=== PATIENT | male | born 1950 | race African-American/Black ===

== ENCOUNTER 2023-03-23 16:39 | Inpatient (IN) | payer OTHER ==
[~2023-03-23] VITALS: Ht 177.8 cm; Wt 68.0 kg
[2023-03-23] MEDS ORDERED: VANCOMYCIN 1G/D5W 200 ML PIGGYBACK IV ONE (18:15)
[2023-03-23] MEDS ORDERED: IV NORMAL SALINE 1000 ML BAG IV ONE (18:15)
[2023-03-23] MEDS ORDERED: MORPHINE SULFATE 4 MG/1 ML DISP.SYRIN IV ONE (18:15)
[2023-03-23] MEDS ORDERED: ONDANSETRON 4 MG/2 ML VIAL IV ONE (18:15)
[2023-03-23] MEDS ORDERED: CEFEPIME HCL 1 G in IV DEXTROSE 5% 50 ML IV ONE (18:15)
[2023-03-23] MEDS ORDERED: CEFEPIME HCL 1 G VIAL ONE (18:30)
[2023-03-23] MEDS ORDERED: MORPHINE SULFATE 4 MG/1 ML DISP.SYRIN ONE (18:30)
[2023-03-23] MEDS ORDERED: ONDANSETRON 4 MG/2 ML VIAL ONE (18:30)
[2023-03-23] MEDS ORDERED: ATOR80TA PO (18:47)
[2023-03-23] MEDS ORDERED: AMIO100T4 PO (18:47)
[2023-03-23] MEDS ORDERED: ONDA4TAB5 PO (18:47)
[2023-03-23] MEDS ORDERED: FAMO10TA41 PO (18:47)
[2023-03-23] MEDS ORDERED: CARV25TA PO (18:47)
[2023-03-23] MEDS ORDERED: CATS CLAW PO (18:47)
[2023-03-23] MEDS ORDERED: INSU3INS6 SQ (18:47)
[2023-03-23] MEDS ORDERED: POTA10TA10 PO (18:47)
[2023-03-23] MEDS ORDERED: ASCO500C18 PO (18:47)
[2023-03-23] MEDS ORDERED: PRED10TA23 PO (18:47)
[2023-03-23] MEDS ORDERED: EMPA10TA PO (18:47)
[2023-03-23] MEDS ORDERED: SULF1TAB48 PO (18:47)
[2023-03-23] MEDS ORDERED: TRAM50TA2 PO (18:47)
[2023-03-23] MEDS ORDERED: BUME2TAB7 PO (18:47)
[2023-03-23] MEDS ORDERED: METO5TAB7 PO (18:47)
[2023-03-23] MEDS ORDERED: UBID100C13 PO (18:47)
[2023-03-23] MEDS ORDERED: APIX5TAB4 PO (18:47)
[2023-03-23] MEDS ORDERED: MULT-213 PO (18:47)
[2023-03-23] MEDS ORDERED: SACU1TAB PO (18:47)
[2023-03-23] MEDS ORDERED: DOCU-141 PO (18:47)
--- NOTE | 2023-03-23 18:50 | NUR ---
[facility] was able to draw blood at this time.
[2023-03-23 18:56] LABS: HEMATOCRIT 41.2 % (36.7-47.1); MEAN CORPUSCULAR HEMOGLOBIN 26.4 uug (23.8-33.4); MEAN CORPUSCULAR VOLUME 82.4 fL (73.0-96.2); PLATELET COUNT (AUTO) 350 K/uL (152-348)
[2023-03-23 19:04] LABS: CARBON DIOXIDE 31 mmol/L (21-32); CHLORIDE 90 mmol/L (98-107); CREATININE 3.1 mg/dL (0.6-1.3); GLUCOSE 160 mg/dL (74-106); POTASSIUM 4.2 mmol/L (3.5-5.1)
[2023-03-23 19:06] LABS: UREA NITROGEN, BLOOD 90 mg/dL (7-18)
[2023-03-23 19:12] LABS: ALANINE AMINOTRANSFERASE 28 U/L (16-63); ALKALINE PHOSPHATASE 87 U/L (50-136); ASPARTATE AMINOTRANSFERASE 23 U/L (15-37); BILIRUBIN,DIRECT 0.3 mg/dL (0.0-0.2); BILIRUBIN,TOTAL 0.6 mg/dL (0.2-1.0); TOTAL PROTEIN, SERUM 7.3 g/dL (6.4-8.2)
--- NOTE | 2023-03-23 19:15 | NUR ---
Received report from Ilene JUNIOR.
[2023-03-23] MEDS ORDERED: VANCOMYCIN IV 200 ML ONE (20:25)
--- NOTE | 2023-03-23 22:28 | NUR ---
Called Dr. Page for general surgery consult. Dr. Davey on phone with Dr. Page.
[2023-03-23] MEDS ORDERED: LORAZEPAM 0.5 MG TABLET ONE (23:40)
[2023-03-23 23:45] LABS: *BILIRUBIN,URIN NEGATIVE (NEGATIVE); *CLARITY,URINE CLEAR (CLEAR); *COLOR,URINE YELLOW (YELLOW); *KETONES,URINE NEGATIVE (NEGATIVE); *UROBILINOGEN,URINE 0.2 E.U./dl (NORMAL); LEUKOCYTE ESTERASE ,URINE NEGATIVE (NEGATIVE); NITRITE, URINE NEGATIVE (NEGATIVE)
[2023-03-23 23:46] LABS: *BLOOD, URINE NEGATIVE (NEGATIVE); UGLUCOSE 2+ (NEGATIVE)
[2023-03-24 00:03] LABS: BACTERIA,URINE NONE SEEN /HPF (NONE SEEN); SQUAMOUS EPITHELIAL CELL,UR NONE SEEN /HPF (NONE SEEN); WBC,URINE 0-3 /HPF (0-3)
[2023-03-24] MEDS ORDERED: MORPHINE SULFATE 4 MG/1 ML DISP.SYRIN IV ONE (02:15)
[2023-03-24] MEDS ORDERED: MORPHINE SULFATE 4 MG/1 ML DISP.SYRIN ONE (02:16)
--- NOTE | 2023-03-24 05:20 | NUR ---
Waiting for insurance authorization approval for patient to stay per dental front office assistant.
--- NOTE | 2023-03-24 06:05 | NUR ---
Called [facility] for panel call. Mando [place] distribution dispatcher.
[2023-03-24] MEDS ORDERED: REMEDY ESSENTIAL ZINC PASTE 113 GM TP PRN (06:45)
[2023-03-24] MEDS ORDERED: MAGNESIUM HYDROXIDE 30 ML LIQUID UDC PO PRN (06:45)
[2023-03-24] MEDS ORDERED: DEXTROSE 50% 50 ML DISP.SYRIN IV PRN (06:45)
[2023-03-24] MEDS ORDERED: DOSING BY PHARMACY-MD TO SPECIFY MED/ROUTE XX PRN (06:45)
[2023-03-24] MEDS: PANTOPRAZOLE SODIUM 40 MG TABLET.DR PO SCH (07:00)
--- NOTE | 2023-03-24 07:08 | NUR ---
Gave report to Josse JUNIOR.
[2023-03-24] MEDS ORDERED: PANTOPRAZOLE SODIUM 40 MG TABLET.DR PO ONE (07:14)
[2023-03-24] MEDS: BLOOD SUGAR DIAGNOSTIC 1 EACH STRIP VI SCH ×4 (07:49→23:00)
--- NOTE | 2023-03-24 07:50 | NUR ---
Received report from [employer]. Pt is A&Ox4 and is cooperative. Safety measures in place. Will continue to monitor.
--- NOTE | 2023-03-24 07:57 | NUR ---
A.M. care done by sarmad Crawford, remains clean dry and intact. Patient repositioned for comfort and updated on plan of care. No s/s of any distress noted, no voiced c/o pain or discomfort. Side rails remain up will continue to monitor.
[2023-03-24] MEDS: IV NS 1000 ML 1,000 ML IV PRN ×2 (08:38→23:11)
--- NOTE | 2023-03-24 09:39 | NUR ---
PATIENT REPOSITIONED FOR COMFORT, IVF INFUSING WELL, REMAINS WITHOUT ANY C/O.
--- NOTE | 2023-03-24 10:58 | NUR ---
Dr. Kamara saw Pt for bedside eval. Safety measures in place. Will continue to monitor.
[2023-03-24] MEDS ORDERED: MORPHINE SULFATE 2 MG/1 ML DISP.SYRIN ONE (11:39)
[2023-03-24] MEDS: MORPHINE SULFATE 2 MG/1 ML DISP.SYRIN IV PRN (11:49)
--- NOTE | 2023-03-24 12:27 | NUR ---
Patient placed into hospital bed, positioned for comfort, family remains at bedside with any c/o at this time.
[2023-03-24] MEDS ORDERED: IV NORMAL SALINE 500 ML BAG IV ONE ×2 (13:15→16:45)
--- NOTE | 2023-03-24 13:15 | NUR ---
Contacted Dr. Kamara about Pt's low BP: 73/45. said to give Pt 500mL NS bolus. Repeat if Pt's BP is still low.
[2023-03-24] MEDS ORDERED: LIDOCAINE 2%-EPI 1:100,000 20 ML VIAL ONE (13:56)
--- NOTE | 2023-03-24 14:38 | NUR ---
Assisted ROBOTICS TECHNICIAN [place] at bedside for I&D and dressing change, IVF complete and patient repositioned for comfort, will continue to monitor. No change noted in primary assessment.
[2023-03-24] MEDS ORDERED: LIDOCAINE 2%-EPI 1:100,000 20 ML VIAL IJ PRN (14:42)
--- NOTE | 2023-03-24 15:45 | NUR ---
Meal tray has been given.
[2023-03-24] MEDS: INSULIN REGULAR, HUMAN 300 UNIT/3 ML VIAL SQ PRN (17:08)
[2023-03-24] MEDS ORDERED: VANCOMYCIN IV 500 MG in IV DEXTROSE 5% 100 ML IV ONE (18:00)
[2023-03-24] MEDS: CEFEPIME HCL 2 G in IV DEXTROSE 5% 100 ML IV SCH (18:08)
[2023-03-24] MEDS ORDERED: ACETAMINOPHEN 325 MG TABLET ONE (18:29)
[2023-03-24] MEDS: ACETAMINOPHEN 325 MG TABLET PO PRN (18:30)
--- NOTE | 2023-03-24 22:18 | NUR ---
Called third floor and gave report to Olga JUNIOR.
--- NOTE | 2023-03-24 23:00 | NUR ---
Transferred patient via gurney upstairs. VERNON Espinoza made aware of patient's arrival.
[2023-03-24 23:30] VITALS: BP 94/80
[2023-03-25] VITALS (7 sets, daily range): BP systolic 80–124; BP diastolic 49–71
[2023-03-25] MEDS: INSULIN REGULAR, HUMAN 300 UNIT/3 ML VIAL SQ PRN ×5 (01:42→21:23)
--- NOTE | 2023-03-25 03:04 | NUR ---
RECEIVED FROM ER PATIENT ALERT AND ORIENTED X4 PATIENT S/P I AND D PT TOLERATED WELL PATIENT DENIES PAIN NO SIGNS OF RESPIRATORY DISTRESS NOTED. PT LT BUTTOCK DRESSING WHICH HAS DRAINAGE DRESSING CHANGED NO SIGNS OF RESPIRATORY DISTRESS NOTED. FALL AND SAFETY PRECAUTION MAINTAINED. PT HS BLOOD SUGAR 273 GIVEN 6 UNITS OF REG INSULIN GIVEN NO SIGNS OF DIABETIC REACTION NOTED. PT IV ACCESS CHANGED TO RAC 20G AND HAS IVF OF NS INFUSING AT 75ML AND HOUR TOLERATING WELL NO SIGNS OF INFILTRATION NOTED WILL ENDORSE TO AM NURSE.
[2023-03-25] MEDS: PANTOPRAZOLE SODIUM 40 MG TABLET.DR PO SCH (06:29)
[2023-03-25] MEDS: BLOOD SUGAR DIAGNOSTIC 1 EACH STRIP VI SCH ×4 (06:29→21:23)
--- NOTE | 2023-03-25 08:00 | NUR ---
AWAKE ALERT WITH PERIODS OF FORGETFULNESS, NO SS OF DISTRESS OR C/O OF ACUTE PAIN, CONTINUE TELE MONITORING SR ON MONITOR
[2023-03-25] MEDS: SODIUM HYPOCHLORITE 0.125% (QUARTER STRENGTH) 473 ML BOTTLE TP SCH ×2 (08:26→20:29)
--- NOTE | 2023-03-25 10:00 | NUR ---
DRESSING CHANGED ON LEFT BUTTOCKS INCISION NOTED MODERATE AMOUNT OF PUS
[2023-03-25 10:15] LABS: HEMATOCRIT 36.3 % (36.7-47.1); MEAN CORPUSCULAR HEMOGLOBIN 25.8 uug (23.8-33.4); MEAN CORPUSCULAR VOLUME 80.8 fL (73.0-96.2); PLATELET COUNT (AUTO) 279 K/uL (152-348)
[2023-03-25 11:09] LABS: CREATININE 2.3 mg/dL (0.6-1.3); MAGNESIUM 2.2 mg/dL (1.8-2.4); PHOSPHOROUS 3.1 mg/dL (2.5-4.9); POTASSIUM 3.7 mmol/L (3.5-5.1)
[2023-03-25] MEDS: ACETAMINOPHEN 325 MG TABLET PO PRN (11:41)
--- NOTE | 2023-03-25 11:45 | NUR ---
PATIENT BP 80/50 LYING IN BED, C/O PAIN WOUND AREA. TYLENOL 650 MG GIVEN PO, DR KHAN NOTIFIED WITH ORDER TO GIVE NS BOLUS 500 X1
[2023-03-25] MEDS: IV NS 1000 ML 1,000 ML IV PRN (12:57)
[2023-03-25] MEDS ORDERED: IV NORMAL SALINE 500 ML IV ONE (13:00)
[2023-03-25] MEDS ORDERED: VANCOMYCIN IV 750 MG in IV DEXTROSE 5% 250 ML IV ONE (13:00)
--- NOTE | 2023-03-25 13:00 | NUR ---
NO ACUTE CHANGE FROM MORNING ASSESSMENT CONTINUE IVF AND IV ANTIBIOTIC
--- NOTE | 2023-03-25 16:15 | NUR ---
PER DAUGHTER SHE HEARD A THUMB IN THE BATHROOM, DAUGHTER WENT TO CHECK DAD WHO WAS IN THE BATHROOM AND FOUND HIM SITTING IN THE TOILET. PER DAUGHTER " I DID NOT SEE HIM FALL" PER PATIENT STATEMENT HE SAID HE FELL AND HURT HIS FOREHEAD. ASSESSMENT DONE IN BED AND NO BUMP OR INJURY OR BRUISING NOTED. DENIES BEST, DIZZINESS, N/V. BP 104/81, HR 76 RR 18, TEMP. 98, O2 SAT 98% RA. DR KHAN NOTIFIED WITH ORDER FOR CT HEAD WITHOUT CONTRAST
[2023-03-25] MEDS: CEFEPIME HCL 2 G in IV DEXTROSE 5% 100 ML IV SCH (17:14)
--- NOTE | 2023-03-25 18:57 | NUR ---
TO CT SCAN VIA BED . REPORT GIVEN TO DRY WALL APPLICATOR
--- NOTE | 2023-03-25 20:15 | NUR ---
wound care to incised wound in the buttocks, packed with Dakin's soaked strips; CT scan Head result came negative.
[2023-03-25] MEDS ORDERED: HOME MED MISCELLANEOUS XX SCH ×4 (21:15)
[2023-03-26] VITALS: BP 120/60
[2023-03-26 04:00] VITALS: BP 117/58
[2023-03-26] MEDS: PANTOPRAZOLE SODIUM 40 MG TABLET.DR PO SCH (06:20)
[2023-03-26] MEDS: BLOOD SUGAR DIAGNOSTIC 1 EACH STRIP VI SCH ×4 (06:28→21:17)
--- NOTE | 2023-03-26 06:49 | NUR ---
pt rested well in between care; no acute distress; incontinence care done; safety maintained; needs attended.
[2023-03-26 06:55] LABS: HEMATOCRIT 37.1 % (36.7-47.1); MEAN CORPUSCULAR HEMOGLOBIN 25.9 uug (23.8-33.4); MEAN CORPUSCULAR VOLUME 80.8 fL (73.0-96.2); PLATELET COUNT (AUTO) 301 K/uL (152-348)
[2023-03-26] MEDS ORDERED: METOLAZONE 2.5 MG TABLET PO SCH (07:00)
[2023-03-26 07:16] LABS: CREATININE 1.8 mg/dL (0.6-1.3); MAGNESIUM 2.1 mg/dL (1.8-2.4)
[2023-03-26 07:29] LABS: POTASSIUM 4.6 mmol/L (3.5-5.1)
[2023-03-26] MEDS: CARVEDILOL 25 MG TABLET PO SCH ×2 (08:00→17:09)
[2023-03-26] MEDS: AMIODARONE HCL 200 MG TABLET PO SCH (09:00)
[2023-03-26] MEDS: BUMETANIDE 1 MG TABLET PO SCH (09:00)
[2023-03-26] MEDS: CEFEPIME HCL 2 G in IV DEXTROSE 5% 100 ML IV SCH ×2 (09:00→21:04)
[2023-03-26] MEDS: MULTIVIT, IRON, MIN NO. 8, FA TABLET PO SCH (09:01)
[2023-03-26] MEDS: POTASSIUM CHLORIDE 20 MEQ TAB.PRT.SR PO SCH (09:02)
[2023-03-26] MEDS: DOCUSATE SODIUM 100 MG CAPSULE PO SCH (09:02)
[2023-03-26] MEDS: APIXABAN 5 MG TABLET PO SCH ×2 (09:03→21:03)
[2023-03-26] MEDS: ASCORBIC ACID 500 MG TABLET PO SCH (09:03)
[2023-03-26] MEDS: SODIUM HYPOCHLORITE 0.125% (QUARTER STRENGTH) 473 ML BOTTLE TP SCH (09:07)
[2023-03-26] MEDS ORDERED: VANCOMYCIN IV 750 MG in IV DEXTROSE 5% 250 ML IV ONE (10:00)
[2023-03-26] MEDS: MORPHINE SULFATE 2 MG/1 ML DISP.SYRIN IV PRN (10:53)
[2023-03-26 12:00] VITALS: BP 113/65
[2023-03-26] MEDS: SACUBITRIL/VALSARTAN 24 MG-26 TABLET PO SCH ×2 (12:22→17:18)
[2023-03-26] MEDS: DAPAGLIFLOZIN PROPANEDIOL 5 MG TABLET PO SCH (12:22)
[2023-03-26] MEDS: INSULIN REGULAR, HUMAN 300 UNIT/3 ML VIAL SQ PRN ×2 (12:44→17:20)
[2023-03-26 16:00] VITALS: BP_SYST 115; BP_SYST 126; BP_DIAS 67
--- NOTE | 2023-03-26 16:24 | NUR ---
by the bedside. Patient Left arm rotating outward since beginning of my shift. Patient able to verbalize his needs. When asked when did his arm rotated outward, patient replied "long time ago". by the bedside and upset patient's arm looks more confused than yesterday. Called primary doctor and pending call back.
--- NOTE | 2023-03-26 17:43 | NUR ---
While taking the Patient down to CT for Head w/o. Patient expressed, "I cant go" I responded "Pee?" He said "yes." He had expressed that he had not went to the bathroom for a while. BUN and CREAT levels elevated 57 BUN and 1.8 CREAT. Notified RN about all what was talked about during CT procedure.
[2023-03-26] MEDS: INSULIN GLARGINE,HUM 300 UNITS/3 ML CARTRIDGE SQ SCH (21:02)
[2023-03-26] MEDS: ATORVASTATIN 40 MG TABLET PO SCH (21:03)
[2023-03-26] MEDS: IV NS 1000 ML 1,000 ML IV PRN (21:27)
[2023-03-26 21:44] VITALS: BP 106/62
--- NOTE | 2023-03-26 22:19 | NUR ---
DR. ORTIZ SPOKE TO , AT
--- NOTE | 2023-03-26 22:30 | NUR ---
DR KHAN TALKING TO PT
[2023-03-26 22:41] LABS: HEMATOCRIT 40.8 % (36.7-47.1); MEAN CORPUSCULAR HEMOGLOBIN 26.3 uug (23.8-33.4); MEAN CORPUSCULAR VOLUME 80.9 fL (73.0-96.2); PLATELET COUNT (AUTO) 346 K/uL (152-348)
[2023-03-26 22:47] LABS: CARBON DIOXIDE 26 mmol/L (21-32); CHLORIDE 102 mmol/L (98-107); CREATININE 1.8 mg/dL (0.6-1.3); GLUCOSE 236 mg/dL (74-106); UREA NITROGEN, BLOOD 51 mg/dL (7-18)
[2023-03-27 00:46] VITALS: BP 106/60
[2023-03-27 04:53] VITALS: BP 103/52
[2023-03-27] MEDS: BLOOD SUGAR DIAGNOSTIC 1 EACH STRIP VI SCH ×4 (06:36→22:00)
[2023-03-27] MEDS: PANTOPRAZOLE SODIUM 40 MG TABLET.DR PO SCH (06:37)
[2023-03-27 07:29] LABS: HEMATOCRIT 38.4 % (36.7-47.1); MEAN CORPUSCULAR VOLUME 80.7 fL (73.0-96.2); PLATELET COUNT (AUTO) 326 K/uL (152-348)
--- NOTE | 2023-03-27 07:30 | NUR ---
REPORT GIVEN TO VERNON PRIEST
[2023-03-27 08:10] LABS: THYROID STIMULATING HORMONE 1.258 mIU/mL (0.358-3.740)
[2023-03-27] MEDS: DOCUSATE SODIUM 100 MG CAPSULE PO SCH (08:43)
[2023-03-27] MEDS: POTASSIUM CHLORIDE 20 MEQ TAB.PRT.SR PO SCH (08:43)
[2023-03-27] MEDS: MULTIVIT, IRON, MIN NO. 8, FA TABLET PO SCH (08:43)
[2023-03-27] MEDS: BUMETANIDE 1 MG TABLET PO SCH (08:43)
[2023-03-27] MEDS: AMIODARONE HCL 200 MG TABLET PO SCH (08:44)
[2023-03-27] MEDS: ASCORBIC ACID 500 MG TABLET PO SCH (08:44)
[2023-03-27] MEDS: CARVEDILOL 25 MG TABLET PO SCH ×2 (08:45→18:00)
[2023-03-27] MEDS: APIXABAN 5 MG TABLET PO SCH ×2 (08:45→22:14)
[2023-03-27] MEDS: DAPAGLIFLOZIN PROPANEDIOL 5 MG TABLET PO SCH (08:46)
[2023-03-27] MEDS: SACUBITRIL/VALSARTAN 24 MG-26 TABLET PO SCH ×2 (08:47→17:38)
[2023-03-27] MEDS: SODIUM HYPOCHLORITE 0.125% (QUARTER STRENGTH) 473 ML BOTTLE TP SCH (08:48)
[2023-03-27] MEDS: CEFEPIME HCL 2 G in IV DEXTROSE 5% 100 ML IV SCH ×2 (08:50→22:15)
[2023-03-27] MEDS: INSULIN REGULAR, HUMAN 300 UNIT/3 ML VIAL SQ PRN ×2 (09:03→12:40)
[2023-03-27 09:37] LABS: CREATININE 1.7 mg/dL (0.6-1.3); MAGNESIUM 2.3 mg/dL (1.8-2.4); PHOSPHOROUS 2.6 mg/dL (2.5-4.9)
[2023-03-27] MEDS ORDERED: VANCOMYCIN IV 750 MG in IV DEXTROSE 5% 250 ML IV ONE (10:00)
[2023-03-27 12:00] VITALS: BP 94/58
[2023-03-27] MEDS: predniSONE 5 MG TABLET PO SCH (12:43)
[2023-03-27 16:00] VITALS: BP 105/60
[2023-03-27] MEDS: GLUCERNA SHAKE 237 ML CAN PO SCH (17:38)
--- NOTE | 2023-03-27 18:35 | NUR ---
Results of ct of abdomen and pelvis called to Dr. Page. texted Dr. Kamara to call urologist to see the patient. Orders received.
[2023-03-27 20:00] VITALS: BP 107/61
[2023-03-27] MEDS ORDERED: CLINDAMYCIN 900MG/D5W 100ML IVPB **ER PYXIS ONLY IJ ONE (21:07)
[2023-03-27] MEDS: MORPHINE SULFATE 2 MG/1 ML DISP.SYRIN IV PRN (21:43)
[2023-03-27] MEDS: ATORVASTATIN 40 MG TABLET PO SCH (22:10)
[2023-03-27] MEDS: INSULIN GLARGINE,HUM 300 UNITS/3 ML CARTRIDGE SQ SCH (22:14)
[2023-03-27] MEDS ORDERED: LORAZEPAM 2 MG/1 ML VIAL IV ONE (23:45)
[2023-03-28] VITALS (11 sets, daily range): BP systolic 81–113; BP diastolic 39–63
[2023-03-28] MEDS ORDERED: CLINDAMYCIN PHOSPHATE IV 900 MG in IV DEXTROSE 5% 100 ML IV SCH (05:00)
[2023-03-28] MEDS: PANTOPRAZOLE SODIUM 40 MG TABLET.DR PO SCH (06:23)
[2023-03-28] MEDS: TRAMADOL HCL 50 MG TABLET PO PRN (06:24)
[2023-03-28] MEDS: BLOOD SUGAR DIAGNOSTIC 1 EACH STRIP VI SCH ×4 (06:24→21:29)
[2023-03-28 07:17] LABS: HEMATOCRIT 32.1 % (36.7-47.1); MEAN CORPUSCULAR HEMOGLOBIN 26.3 uug (23.8-33.4); MEAN CORPUSCULAR VOLUME 80.4 fL (73.0-96.2); PLATELET COUNT (AUTO) 300 K/uL (152-348)
[2023-03-28 07:30] LABS: CREATININE 2.3 mg/dL (0.6-1.3); POTASSIUM 3.5 mmol/L (3.5-5.1)
--- NOTE | 2023-03-28 07:30 | NUR ---
REPORT GIVEN TO VERNON SHEA
[2023-03-28] MEDS ORDERED: CLINDAMYCIN PHOSPHATE IV 900 MG in IV DEXTROSE 5% 44 ML IV SCH (07:58)
[2023-03-28] MEDS ORDERED: MEROPENEM 1 G in IV NORMAL SALINE 100 ML IV SCH (08:00)
[2023-03-28] MEDS: CARVEDILOL 25 MG TABLET PO SCH ×2 (08:00→18:00)
[2023-03-28] MEDS: INSULIN REGULAR, HUMAN 300 UNIT/3 ML VIAL SQ PRN ×3 (08:24→21:31)
[2023-03-28] MEDS: GLUCERNA SHAKE 237 ML CAN PO SCH ×2 (08:25→17:00)
[2023-03-28] MEDS: DAPAGLIFLOZIN PROPANEDIOL 5 MG TABLET PO SCH (09:00)
--- NOTE | 2023-03-28 09:00 | NUR ---
RECEIVED PATIENT IN BED AWAKE ALERT TO SELF SOMEWHAT SLOW BUT ANSWERS QUESTIONS WHEN SPOKEN TO ON ROOM AIR WITH NO SHORTNESS OF BREATH.TURNED AND REPOSITIONED FOR COMFORT NO S/S OF HYPO/HYPERGLYCEMIC REACTIONS AT THIS TIME TREATMENT IN PROGRESS TO LEFT BUTTOCKS AREA ORDERED WITH PURULENT DRAINAGE NOTED.TELE IS SR HE HAS GAIL WRIST RESTRAINTS FOR SAFETY TO PREVENT FROM PULLING OUT TUBES CHECKED FOR ADEQUATE CIRCULATION AND RELEASED MADE COMFORTABLE WILL CONTINUE TO OBSERVE.
[2023-03-28] MEDS: POTASSIUM CHLORIDE 20 MEQ TAB.PRT.SR PO SCH (09:19)
[2023-03-28] MEDS: DOCUSATE SODIUM 100 MG CAPSULE PO SCH (09:21)
[2023-03-28] MEDS: MULTIVIT, IRON, MIN NO. 8, FA TABLET PO SCH (09:21)
[2023-03-28] MEDS: AMIODARONE HCL 200 MG TABLET PO SCH (09:23)
[2023-03-28] MEDS: APIXABAN 5 MG TABLET PO SCH ×2 (09:25→21:00)
[2023-03-28] MEDS: SACUBITRIL/VALSARTAN 24 MG-26 TABLET PO SCH ×2 (09:29→17:00)
[2023-03-28] MEDS: SODIUM HYPOCHLORITE 0.125% (QUARTER STRENGTH) 473 ML BOTTLE TP SCH (09:41)
[2023-03-28] MEDS ORDERED: VANCOMYCIN IV 750 MG in IV DEXTROSE 5% 250 ML IV ONE (10:00)
[2023-03-28] MEDS: ASCORBIC ACID 500 MG TABLET PO SCH (10:16)
[2023-03-28] MEDS: CLINDAMYCIN PHOSPHATE IV 900 MG in IV DEXTROSE 5% 44 ML IV SCH ×2 (10:16→20:33)
[2023-03-28] MEDS: BUMETANIDE 1 MG TABLET PO SCH (10:17)
--- NOTE | 2023-03-28 11:30 | NUR ---
DR MOTLEY HERE SEEN AND EXAMINED PATIENT AT THE BEDSIDE AND STATED THAT PATIENT NEEDS SURGICAL INTERVENTION AND THAT DR CLAY NEEDS TO BE NOTIFIED.
[2023-03-28] MEDS: predniSONE 5 MG TABLET PO SCH (12:00)
--- NOTE | 2023-03-28 12:35 | NUR ---
CALLED DR DANNA GHOSH NOTIFIED HIM THAT DR MOTLEY WAS HERE AND EXAMINED PATIENT AND STATED THAT PATIENT NEEDS FUTHER SURGICAL INTERVENTION AND HE STATED THAT HE IS OUT OF TOWN AND DR REN WAS COVERING STATED WILL NOTIFY DR REN AND WILL THEN NOTIFY ME OF THE PLAN OF CARE.
--- NOTE | 2023-03-28 12:41 | NUR ---
CALL RECEIVED FROM DR DANNA GHOSH STATED THAT DR REN IS AWARE OF THE ABOVE SURGICAL INTERVENTION AND THAT DR REN WILL BE HERE TODAY TO SEE PATIENT.
--- NOTE | 2023-03-28 13:25 | NUR ---
DR REN HERE SEEN PATIENT STATED WILL TAKE PATIENT IN FOR INCISION DEBRIDEMENT AND DRAINAGE OF LEFT BUTTOCKS WOUND PATIENTS GISELA AWARE AND DR REN EXPLAINED EVERYTHING TO HER ON THE PHONE AND SHE GAVE ME A TELEPHONE CONSCENT SO PATIENT IS SCHEDULED FOR SURGERY
--- NOTE | 2023-03-28 15:30 | NUR ---
PATIENT PICKED UP BY BED TO SURGERY ORDERED.
[2023-03-28] MEDS ORDERED: GLYCOPYRROLATE 0.2 MG/ML VIAL ONE (15:31)
[2023-03-28] MEDS ORDERED: ETOMIDATE 20 MG/10 ML VIAL ONE (15:31)
[2023-03-28] MEDS ORDERED: CALCIUM CHLORIDE 1 GM/10 ML DISP.SYRIN IVP ONE ×2 (15:31→15:56)
[2023-03-28] MEDS ORDERED: METOCLOPRAMIDE HCL 10 MG/2 ML VIAL ONE (15:31)
[2023-03-28] MEDS ORDERED: LIDOCAINE-MPF 2% 5 ML VIAL ONE (15:31)
[2023-03-28] MEDS ORDERED: PHENYLEPHRINE 10 MG/1 ML VIAL ONE (15:31)
[2023-03-28] MEDS ORDERED: PROPOFOL 200 MG/20 ML BOTTLE ONE (15:31)
[2023-03-28] MEDS ORDERED: ONDANSETRON 4 MG/2 ML VIAL ONE (15:31)
[2023-03-28] MEDS ORDERED: CLINDAMYCIN 600 MG PIGGYBACK**ER OMNI IV ONE (15:54)
[2023-03-28] MEDS ORDERED: KETAMINE HCL 200 MG/20 ML VIAL ONE (15:55)
[2023-03-28] MEDS ORDERED: INSULIN REGULAR, HUMAN 300 UNIT/3 ML VIAL ONE (15:55)
[2023-03-28] MEDS ORDERED: ALBUMIN HUMAN 5% 500 ML ONE (15:55)
[2023-03-28] MEDS ORDERED: FENTANYL CITRATE 100 MCG/2 ML AMPUL ONE (15:55)
[2023-03-28] MEDS ORDERED: FAMOTIDINE. 20 MG/2 ML VIAL IV ONE (15:56)
[2023-03-28] MEDS ORDERED: IV LACTATED RINGERS SOLUTION 1,000 ML IV PRN (18:30)
--- NOTE | 2023-03-28 20:45 | NUR ---
Pt is noted on the unit from PACU sleepy but responsive as he is S/P Incision Debridement and Drainage to Left Buttocks wound. Sinus Rhythm , Diminished Lungs sound with 02 2Liters Nasal Cannula , skin cool with surgical areas noted and dressing change done as PACU dressing saturated and wet during report at bedside . Pt is noted with Conley Cath as he is care continue with IVF LR at 100ML/HR , While monitor closely for any s/s off distress or change in conditions during the shift.
[2023-03-28] MEDS: INSULIN GLARGINE,HUM 300 UNITS/3 ML CARTRIDGE SQ SCH (21:00)
[2023-03-28] MEDS: ATORVASTATIN 40 MG TABLET PO SCH (21:00)
--- NOTE | 2023-03-28 22:18 | NUR ---
Pt Moe Avendaño was called and updated on conditions. Pt care continue while monitor closely.
[2023-03-28] MEDS ORDERED: MEROPENEM 1 G VIAL IV ONE (23:48)
[2023-03-28] MEDS ORDERED: CLINDAMYCIN 900MG/D5W 100ML IVPB **ER PYXIS ONLY IJ ONE (23:49)
[2023-03-29] VITALS (13 sets, daily range): BP systolic 85–110; BP diastolic 49–63
--- NOTE | 2023-03-29 00:09 | NUR ---
Pt remain full code with Vitals stable , call light in reach and fall precautions in place. Pt care continue as he is been monitor closely with IVF and Antibiotic therapy in progress.
[2023-03-29] MEDS: MORPHINE SULFATE 2 MG/1 ML DISP.SYRIN IV PRN ×3 (03:05→14:58)
--- NOTE | 2023-03-29 03:45 | NUR ---
Morphine IVP noted effective with call light in reach and fall precautions in place as AM and wound care done. Pt care continue.
[2023-03-29 05:34] LABS: HEMATOCRIT 30.3 % (36.7-47.1); MEAN CORPUSCULAR HEMOGLOBIN 26.2 uug (23.8-33.4); MEAN CORPUSCULAR VOLUME 80.2 fL (73.0-96.2); PLATELET COUNT (AUTO) 272 K/uL (152-348)
[2023-03-29 05:46] LABS: CREATININE 1.5 mg/dL (0.6-1.3); MAGNESIUM 1.5 mg/dL (1.8-2.4); PHOSPHOROUS 2.4 mg/dL (2.5-4.9); POTASSIUM 4.1 mmol/L (3.5-5.1)
[2023-03-29] MEDS: PANTOPRAZOLE SODIUM 40 MG TABLET.DR PO SCH (06:50)
[2023-03-29] MEDS: BLOOD SUGAR DIAGNOSTIC 1 EACH STRIP VI SCH ×4 (06:55→21:31)
--- NOTE | 2023-03-29 07:25 | NUR ---
Pt care continue as report given to the AM receiving Nurse.
[2023-03-29] MEDS: CARVEDILOL 25 MG TABLET PO SCH ×2 (08:00→17:25)
[2023-03-29] MEDS: GLUCERNA SHAKE 237 ML CAN PO SCH ×2 (08:00→17:16)
--- NOTE | 2023-03-29 08:00 | NUR ---
Verbal endorsement received from night primary RN. Complete intial assessment rendered . See nursing notes for details. Pt. is medical pt. in ICU . Medical Surgical protocol will be followed. Pt. received lying on right side. Pt. is confused. Pt. is able to describe pain and intensity. c/o pain 10/10. Medicated with PRN as ordered. Monotored for pain, and acute distress.
[2023-03-29] MEDS: MEROPENEM 1 G in IV NORMAL SALINE 100 ML IV SCH ×4 (08:12→21:17)
[2023-03-29] MEDS: CLINDAMYCIN PHOSPHATE IV 900 MG in IV DEXTROSE 5% 44 ML IV SCH ×3 (08:22)
[2023-03-29] MEDS: SACUBITRIL/VALSARTAN 24 MG-26 TABLET PO SCH ×2 (08:24→17:14)
[2023-03-29] MEDS: DAPAGLIFLOZIN PROPANEDIOL 5 MG TABLET PO SCH (08:25)
[2023-03-29] MEDS: POTASSIUM CHLORIDE 20 MEQ TAB.PRT.SR PO SCH (08:27)
[2023-03-29] MEDS: MULTIVIT, IRON, MIN NO. 8, FA TABLET PO SCH (08:27)
[2023-03-29] MEDS: DOCUSATE SODIUM 100 MG CAPSULE PO SCH (08:28)
[2023-03-29] MEDS: AMIODARONE HCL 200 MG TABLET PO SCH (08:28)
[2023-03-29] MEDS ORDERED: MAGNESIUM SULFATE/D5W 100 ML IV SCH (08:45)
[2023-03-29] MEDS ORDERED: NEUTRA PHOS PACKET PO ONE (08:45)
[2023-03-29] MEDS: APIXABAN 5 MG TABLET PO SCH ×2 (08:57→21:18)
[2023-03-29] MEDS ORDERED: VANCOMYCIN IV 750 MG in IV DEXTROSE 5% 250 ML IV ONE (09:00)
[2023-03-29] MEDS: ASCORBIC ACID 500 MG TABLET PO SCH (09:01)
[2023-03-29] MEDS: INSULIN REGULAR, HUMAN 300 UNIT/3 ML VIAL SQ PRN ×3 (11:34→21:29)
--- NOTE | 2023-03-29 13:00 | NUR ---
Dr. Walton in for evaluation. Magnisium replacements ordered. Orders confirmed not to change drsg. only top of drsg. Do not remove packing.
--- NOTE | 2023-03-29 14:06 | NUR ---
A call from Surgeon Dr. Solomon whatley reported as requested orders to give 3grams of magnesium IV and kphos QID.
[2023-03-29] MEDS: MAGNESIUM SULFATE/D5W 100 ML IV SCH ×2 (15:03→15:04)
[2023-03-29] MEDS: ACETAMINOPHEN 325 MG TABLET PO PRN (16:47)
[2023-03-29] MEDS: CLINDAMYCIN PHOSPHATE IV 900 MG in IV DEXTROSE 5% 100 ML IV SCH (17:14)
--- NOTE | 2023-03-29 18:00 | NUR ---
Pt. had small amount of fecal soilage to rectal drsg. Changed and repositioned for comfort. Endorsed to oncoming shift injury free.
--- NOTE | 2023-03-29 19:15 | NUR ---
Pt is noted sleeping but responsive with call light in reach and fall precautions in place as he is forgetful as report is received from the off going nurse that , Pt is OP#1 S/P Incision Debridement and Drainage to Left Buttocks wound. Sinus Rhythm , Diminished Lungs sound , Room Air , skin dry, warml with surgical areas noted and dressing change will be done as ordered . Pt is noted with Conley Cath as he is care continue with IVF LR at 100ML/HR and Antibiotic therapy While monitor closely for any s/s off distress or change in conditions during the shift.
[2023-03-29] MEDS: INSULIN GLARGINE,HUM 300 UNITS/3 ML CARTRIDGE SQ SCH (21:00)
--- NOTE | 2023-03-29 21:00 | NUR ---
Pt son visited with updates given on Pt condition. Pt care continue.
[2023-03-29] MEDS: ATORVASTATIN 40 MG TABLET PO SCH (21:16)
[2023-03-30] VITALS (16 sets, daily range): BP systolic 80–124; BP diastolic 46–113
--- NOTE | 2023-03-30 00:40 | NUR ---
Pt remain full code with IVF and Antibiotic therapy in progress as he is been turn and reposition QHRS for comfort. Pt care continue.
[2023-03-30] MEDS: CLINDAMYCIN PHOSPHATE IV 900 MG in IV DEXTROSE 5% 100 ML IV SCH ×3 (03:48→17:24)
--- NOTE | 2023-03-30 05:02 | NUR ---
Pt is sleeping as AM and wound care done while monitor closely as Conley Cath remain in place. Pt care continue.
--- NOTE | 2023-03-30 05:03 | NUR ---
Pt care continue as he remain full code with call light in reach and fall precautions in place as he is been turn and reposition 2HRS for comfort.
[2023-03-30 05:07] LABS: HEMATOCRIT 31.2 % (36.7-47.1); MEAN CORPUSCULAR HEMOGLOBIN 26.5 uug (23.8-33.4); MEAN CORPUSCULAR VOLUME 80.8 fL (73.0-96.2); PLATELET COUNT (AUTO) 262 K/uL (152-348)
[2023-03-30 05:26] LABS: CREATININE 1.4 mg/dL (0.6-1.3); PHOSPHOROUS 2.4 mg/dL (2.5-4.9); POTASSIUM 4.1 mmol/L (3.5-5.1)
[2023-03-30] MEDS: PANTOPRAZOLE SODIUM 40 MG TABLET.DR PO SCH (06:46)
[2023-03-30] MEDS: BLOOD SUGAR DIAGNOSTIC 1 EACH STRIP VI SCH ×4 (06:51→20:47)
[2023-03-30] MEDS: INSULIN REGULAR, HUMAN 300 UNIT/3 ML VIAL SQ PRN ×3 (07:01→20:55)
--- NOTE | 2023-03-30 07:30 | NUR ---
Pt. verbally endorsed from night primary RN Esthela. mPt. is resting in bed lying on left side. panel monitor intact depicting SR. Pt. has no c/o pain at this time. Complete initial assessment rendered. See nursing notes for detai;s. Surgical buttocks drsg checked for excessive drainage. drsg is CDI at this assessment. Pt. monitored for acute distress.
--- NOTE | 2023-03-30 07:33 | NUR ---
Pt care continue as report is given to the AM receiving nurse.
[2023-03-30] MEDS: CARVEDILOL 25 MG TABLET PO SCH ×2 (08:00→17:26)
[2023-03-30] MEDS: ASCORBIC ACID 500 MG TABLET PO SCH (08:25)
[2023-03-30] MEDS: MULTIVIT, IRON, MIN NO. 8, FA TABLET PO SCH (08:25)
[2023-03-30] MEDS: AMIODARONE HCL 200 MG TABLET PO SCH (08:25)
[2023-03-30] MEDS: DOCUSATE SODIUM 100 MG CAPSULE PO SCH (08:25)
[2023-03-30] MEDS: APIXABAN 5 MG TABLET PO SCH ×2 (08:26→20:27)
[2023-03-30] MEDS: SACUBITRIL/VALSARTAN 24 MG-26 TABLET PO SCH ×2 (08:31→17:24)
[2023-03-30] MEDS: POTASSIUM CHLORIDE 20 MEQ TAB.PRT.SR PO SCH (08:31)
[2023-03-30] MEDS: MEROPENEM 1 G in IV NORMAL SALINE 100 ML IV SCH ×2 (08:32→20:25)
[2023-03-30] MEDS: GLUCERNA SHAKE 237 ML CAN PO SCH ×2 (08:33→17:00)
[2023-03-30] MEDS: DAPAGLIFLOZIN PROPANEDIOL 5 MG TABLET PO SCH (08:35)
[2023-03-30] MEDS ORDERED: VANCOMYCIN IV 750 MG in IV DEXTROSE 5% 250 ML IV ONE (09:00)
--- NOTE | 2023-03-30 10:14 | NUR ---
Dr. Carbajal paged to inquire of wound care. Instructions given to rinse wound with saline and Dakins solution and re pack drsg. Do not remove drsgs past xeroform. Remove only surface soiled drsgs and medicate pt. before drsg change.
[2023-03-30] MEDS ORDERED: SODIUM HYPOCHLORITE 0.25% (HALF STRENGTH) 480 ML BOTTLE TOP PRN (10:30)
[2023-03-30] MEDS: MORPHINE SULFATE 2 MG/1 ML DISP.SYRIN IV PRN (11:23)
--- NOTE | 2023-03-30 13:00 | NUR ---
Pt. cleansed of BM . Drsg changed as per MD orders. All packing removed. Dr. Carbajal in as I started to change drsg. Instructed to remove all packing as it was soiled with feces. Irrigated with Dakins solution and saline with 60cc syringe. Applied xerofoam first and packed into lower portion of wound near scrotum. Then applied damp dakins and saline curlex packing to end of wound as per Dr. Carbajal. 4x4 's then applied to top of packing and this is what should be removed during changes unless soilage extends to xerofoam. 5x9's abdominal drsgs to cover total wound and use paper tape. Pt. tolerated drsg change well. Pre-medicated with Morphine 2mg. IV.
[2023-03-30] MEDS: ACETAMINOPHEN 325 MG TABLET PO PRN (13:18)
[2023-03-30] MEDS: TRAMADOL HCL 50 MG TABLET PO PRN ×2 (14:26→21:26)
[2023-03-30] MEDS ORDERED: NEUTRA PHOS PACKET PO ONE (17:30)
[2023-03-30] MEDS: ATORVASTATIN 40 MG TABLET PO SCH (20:28)
--- NOTE | 2023-03-30 20:40 | NUR ---
Pt care continue as order noted from DR. Kamara for PICC Line insertion.
[2023-03-30] MEDS ORDERED: INSULIN GLARGINE,HUM 300 UNITS/3 ML CARTRIDGE SQ ONE (20:49)
[2023-03-30] MEDS: INSULIN GLARGINE,HUM 300 UNITS/3 ML CARTRIDGE SQ SCH (20:56)
[2023-03-31] VITALS (11 sets, daily range): BP systolic 83–135; BP diastolic 34–77
[2023-03-31] MEDS: CLINDAMYCIN PHOSPHATE IV 900 MG in IV DEXTROSE 5% 100 ML IV SCH ×3 (00:16→16:28)
[2023-03-31] MEDS ORDERED: NOREPINEPHRINE BITARTRATE 8 MG in IV NORMAL SALINE 242 ML IV PRN ×2 (02:30→14:00)
[2023-03-31] MEDS ORDERED: NOREPINEPHRINE BITARTRATE 4 MG/4 ML VIAL IV ONE (03:40)
--- NOTE | 2023-03-31 04:00 | NUR ---
Levophed started on patient, 0.2 mcgs and weaned off at 0600. Pharmacy not available at this so I am charting a noted, dressing changed completed this am. Vital signs stable and the patient will be ready for med-surg
[2023-03-31] MEDS: BLOOD SUGAR DIAGNOSTIC 1 EACH STRIP VI SCH ×4 (05:24→20:24)
[2023-03-31 05:26] LABS: HEMATOCRIT 24.7 % (36.7-47.1); MEAN CORPUSCULAR HEMOGLOBIN 26.6 uug (23.8-33.4); MEAN CORPUSCULAR VOLUME 79.7 fL (73.0-96.2); PLATELET COUNT (AUTO) 262 K/uL (152-348)
[2023-03-31] MEDS: PANTOPRAZOLE SODIUM 40 MG TABLET.DR PO SCH (05:26)
[2023-03-31 05:48] LABS: CREATININE 1.3 mg/dL (0.6-1.3); MAGNESIUM 1.9 mg/dL (1.8-2.4); PHOSPHOROUS 2.9 mg/dL (2.5-4.9); POTASSIUM 4.6 mmol/L (3.5-5.1)
[2023-03-31] MEDS: TRAMADOL HCL 50 MG TABLET PO PRN (06:05)
[2023-03-31] MEDS ORDERED: VANCOMYCIN IV 1,000 MG in IV DEXTROSE 5% 250 ML IV ONE (08:00)
--- NOTE | 2023-03-31 08:00 | NUR ---
Dr Fernch saw the patient and I updated him about the condition of the patient from last night and this morning.
[2023-03-31] MEDS: POTASSIUM CHLORIDE 20 MEQ TAB.PRT.SR PO SCH (08:30)
[2023-03-31] MEDS: AMIODARONE HCL 200 MG TABLET PO SCH (08:31)
[2023-03-31] MEDS: CARVEDILOL 25 MG TABLET PO SCH ×2 (08:31→17:36)
[2023-03-31] MEDS: ASCORBIC ACID 500 MG TABLET PO SCH (08:32)
[2023-03-31] MEDS: DOCUSATE SODIUM 100 MG CAPSULE PO SCH (08:32)
[2023-03-31] MEDS: APIXABAN 5 MG TABLET PO SCH ×2 (08:32→20:24)
[2023-03-31] MEDS: MULTIVIT, IRON, MIN NO. 8, FA TABLET PO SCH (08:32)
[2023-03-31] MEDS: DAPAGLIFLOZIN PROPANEDIOL 5 MG TABLET PO SCH (08:34)
[2023-03-31] MEDS: MEROPENEM 1 G in IV NORMAL SALINE 100 ML IV SCH ×2 (08:35→15:35)
[2023-03-31] MEDS: GLUCERNA SHAKE 237 ML CAN PO SCH ×2 (09:11→16:28)
[2023-03-31] MEDS: SACUBITRIL/VALSARTAN 24 MG-26 TABLET PO SCH ×2 (09:20→16:28)
[2023-03-31] MEDS: INSULIN REGULAR, HUMAN 300 UNIT/3 ML VIAL SQ PRN ×3 (12:03→20:25)
--- NOTE | 2023-03-31 18:40 | NUR ---
RECEIVED PATIENT FROM CCU BY BED 72 YEARS OLD MALE AWAKE ALERT AND ORIENTED ORIENTED TO ROOM TELE IS SR AT BEDSIDE HE HAS O2 AT 2L/M BY NASAL CANULA RIGHT ARM SWOLLEN WITH PICC LINE INTACT HE HAS ON HIS ALVARADO BUNION A PURPLE HARD AREA ENDORSED TO FOLLOW UP WITH THE MEDICAID ANALYST
--- NOTE | 2023-03-31 19:30 | NUR ---
Received patient lying in bed. AAOx4. In no acute distress. No complain of pain or SOB. NSR on tele with Hr of 74/min. PICC line on right upper arm, PIV on right ac and right forearm intact and patent. Dressing on left buttock clean, dry and intact. Conley catheter intact and draining via gravity. Safety measure initiated and call light within reached.
[2023-03-31] MEDS: ATORVASTATIN 40 MG TABLET PO SCH (20:23)
[2023-03-31] MEDS: INSULIN GLARGINE,HUM 300 UNITS/3 ML CARTRIDGE SQ SCH (20:25)
[2023-04-01] MEDS: MEROPENEM 1 G in IV NORMAL SALINE 100 ML IV SCH ×3 (00:06→16:15)
[2023-04-01] MEDS: CLINDAMYCIN PHOSPHATE IV 900 MG in IV DEXTROSE 5% 100 ML IV SCH ×3 (00:07→17:06)
[2023-04-01 00:30] VITALS: BP 104/56
[2023-04-01] MEDS: ACETAMINOPHEN 325 MG TABLET PO PRN ×2 (00:33→16:16)
--- NOTE | 2023-04-01 01:23 | NUR ---
Temp was 100.0 orally. Tylenol 650mg PO given and provided cooling measures. Temp down to 99.6 orally at this time. Continue with cooling measures.
[2023-04-01 05:04] VITALS: BP 101/55
--- NOTE | 2023-04-01 05:40 | NUR ---
Afebrile at this time. No adverse reaction noted from IV antibiotics. NSR on tele with Hr of 72/min. Dressing changed to left buttock surgical site x2. Conley catheter intact and draining via gravity. Needs attended to and met. Safety measure maintained and call light within reached.
[2023-04-01] MEDS: PANTOPRAZOLE SODIUM 40 MG TABLET.DR PO SCH (06:09)
[2023-04-01] MEDS: BLOOD SUGAR DIAGNOSTIC 1 EACH STRIP VI SCH ×4 (06:38→21:03)
[2023-04-01 06:57] LABS: HEMATOCRIT 25.7 % (36.7-47.1); MEAN CORPUSCULAR HEMOGLOBIN 26.6 uug (23.8-33.4); MEAN CORPUSCULAR VOLUME 80.4 fL (73.0-96.2); PLATELET COUNT (AUTO) 305 K/uL (152-348)
[2023-04-01 07:19] LABS: BILIRUBIN,TOTAL 1.1 mg/dL (0.2-1.0); CREATININE 1.3 mg/dL (0.6-1.3); PHOSPHOROUS 2.7 mg/dL (2.5-4.9); POTASSIUM 4.8 mmol/L (3.5-5.1); TOTAL PROTEIN, SERUM 6.6 g/dL (6.4-8.2)
[2023-04-01] MEDS: CARVEDILOL 25 MG TABLET PO SCH ×2 (09:37→17:06)
[2023-04-01] MEDS: DOCUSATE SODIUM 100 MG CAPSULE PO SCH (09:38)
[2023-04-01] MEDS: AMIODARONE HCL 200 MG TABLET PO SCH (09:38)
[2023-04-01] MEDS: MULTIVIT, IRON, MIN NO. 8, FA TABLET PO SCH (09:38)
[2023-04-01] MEDS: POTASSIUM CHLORIDE 20 MEQ TAB.PRT.SR PO SCH (09:38)
[2023-04-01] MEDS: ASCORBIC ACID 500 MG TABLET PO SCH (09:38)
[2023-04-01] MEDS: APIXABAN 5 MG TABLET PO SCH ×2 (09:39→21:01)
[2023-04-01] MEDS: DAPAGLIFLOZIN PROPANEDIOL 5 MG TABLET PO SCH (09:40)
[2023-04-01] MEDS: SACUBITRIL/VALSARTAN 24 MG-26 TABLET PO SCH ×2 (09:40→17:06)
[2023-04-01] MEDS ORDERED: VANCOMYCIN IV 1,000 MG in IV DEXTROSE 5% 250 ML IV ONE (10:30)
[2023-04-01 10:43] LABS: MAGNESIUM 2.1 mg/dL (1.8-2.4)
[2023-04-01] MEDS: GLUCERNA SHAKE 237 ML CAN PO SCH ×2 (10:53→17:07)
[2023-04-01 11:41] VITALS: BP 99/38
[2023-04-01] MEDS: INSULIN REGULAR, HUMAN 300 UNIT/3 ML VIAL SQ PRN ×3 (12:08→21:02)
[2023-04-01] MEDS: PROTEIN SUPPLEMENT (PROSTAT) 30 ML LIQUID PO SCH ×2 (12:14→17:07)
[2023-04-01] MEDS: TRAMADOL HCL 50 MG TABLET PO PRN (14:01)
[2023-04-01 15:43] VITALS: BP 99/55
--- NOTE | 2023-04-01 16:11 | NUR ---
wound care Tx done. safety measure in placed.
[2023-04-01] MEDS: MORPHINE SULFATE 2 MG/1 ML DISP.SYRIN IV PRN (16:54)
[2023-04-01 17:17] LABS: *OCCULT BLOOD STOOL NEGATIVE (NEGATIVE)
[2023-04-01 20:00] VITALS: BP 93/56
[2023-04-01] MEDS: INSULIN GLARGINE,HUM 300 UNITS/3 ML CARTRIDGE SQ SCH (21:01)
[2023-04-01] MEDS: ATORVASTATIN 40 MG TABLET PO SCH (21:04)
[2023-04-02] MEDS: CLINDAMYCIN PHOSPHATE IV 900 MG in IV DEXTROSE 5% 100 ML IV SCH ×3 (00:02→17:16)
[2023-04-02] MEDS: MEROPENEM 1 G in IV NORMAL SALINE 100 ML IV SCH ×3 (00:02→17:16)
[2023-04-02 00:08] VITALS: BP 94/51
[2023-04-02] MEDS: MORPHINE SULFATE 2 MG/1 ML DISP.SYRIN IV PRN ×3 (04:25→21:12)
[2023-04-02] MEDS: BLOOD SUGAR DIAGNOSTIC 1 EACH STRIP VI SCH ×6 (06:35→20:12)
[2023-04-02] MEDS: PANTOPRAZOLE SODIUM 40 MG TABLET.DR PO SCH (06:51)
[2023-04-02 07:04] LABS: HEMATOCRIT 22.7 % (36.7-47.1); MEAN CORPUSCULAR HEMOGLOBIN 27.4 uug (23.8-33.4); PLATELET COUNT (AUTO) 277 K/uL (152-348)
--- NOTE | 2023-04-02 07:07 | NUR ---
END OF SHIFT REPORT Patient awake all night watching TV; 1x BM and incontinence care done; wound care done; morphine given IVP Prior to wound care; BS this AM is 64 then 67 after orange juice and farhad crackers; next BS at 0715; report given to nurse Anderson.
[2023-04-02 07:24] LABS: CREATININE 1.2 mg/dL (0.6-1.3); MAGNESIUM 2.1 mg/dL (1.8-2.4); PHOSPHOROUS 2.6 mg/dL (2.5-4.9); POTASSIUM 4.5 mmol/L (3.5-5.1)
[2023-04-02 08:40] VITALS: BP 115/63
[2023-04-02] MEDS ORDERED: BUMETANIDE 1 MG TABLET PO SCH (09:00)
[2023-04-02] MEDS: DOCUSATE SODIUM 100 MG CAPSULE PO SCH (09:00)
[2023-04-02] MEDS: POTASSIUM CHLORIDE 20 MEQ TAB.PRT.SR PO SCH (09:11)
[2023-04-02] MEDS: CARVEDILOL 25 MG TABLET PO SCH ×2 (09:11→17:18)
[2023-04-02] MEDS: MULTIVIT, IRON, MIN NO. 8, FA TABLET PO SCH (09:11)
[2023-04-02] MEDS: SACUBITRIL/VALSARTAN 24 MG-26 TABLET PO SCH ×2 (09:11→17:16)
[2023-04-02] MEDS: ASCORBIC ACID 500 MG TABLET PO SCH (09:11)
[2023-04-02] MEDS: AMIODARONE HCL 200 MG TABLET PO SCH (09:11)
[2023-04-02] MEDS: DAPAGLIFLOZIN PROPANEDIOL 5 MG TABLET PO SCH (09:12)
[2023-04-02] MEDS: PROTEIN SUPPLEMENT (PROSTAT) 30 ML LIQUID PO SCH ×3 (09:13→17:17)
[2023-04-02] MEDS: GLUCERNA SHAKE 237 ML CAN PO SCH ×2 (09:13→17:17)
[2023-04-02] MEDS: APIXABAN 5 MG TABLET PO SCH ×2 (09:14→20:13)
[2023-04-02 12:00] VITALS: BP 96/54
[2023-04-02] MEDS: INSULIN REGULAR, HUMAN 300 UNIT/3 ML VIAL SQ PRN ×3 (12:23→20:14)
[2023-04-02 16:00] VITALS: BP 108/47
--- NOTE | 2023-04-02 18:31 | NUR ---
shift note. pt alert and oriented. in no acute distress. denies sob. pt c/o buttocks pain, PRN morphine was given per md order. wound tx done. pt was seen by hospitalist. no new order. dc plan in placed pt will go to [facility] when medically cleared by md. all need attended. safety measure in placed.
--- NOTE | 2023-04-02 19:45 | NUR ---
RECEIVED PATIENT AWAKE IN BED. A/O X3. DENIES PAIN AT THIS TIME. NO RESP. DISTRESS NOTED. PICC LINE NOTED TO RIGHT UPPER ARM. F/C INTACT AND DRAINING WELL. CALL LIGHT IN REACH. ALL NEEDS ATTENDED. WILL CONTINUE TO MONITOR AND ASSESS.
[2023-04-02] MEDS: ATORVASTATIN 40 MG TABLET PO SCH (20:12)
[2023-04-02] MEDS: INSULIN GLARGINE,HUM 300 UNITS/3 ML CARTRIDGE SQ SCH (20:13)
--- NOTE | 2023-04-02 21:00 | NUR ---
PATIENT AWAKE IN BED. STATED HE HAD A BM. DRESSING NOTED TO LEFT BUTTOCKS, SOILED. PATIENT CLEANED AND WOUND CARE PROVIDED ORDERED. DRESSING CLEAN, DRY AND INTACT. WILL CONTINUE TO MONITOR. PATIENT C/O PAIN 06/18. GIVEN MORPHINE 2MG IVP PER POCKET MAKER. VS WNL. CALL LIGHT IN REACH. ALL NEEDS ATTENDED. WILL CONTINUE TO MONITOR AND ASSESS. Addendum: 04/02/23 at 9768 by BEATRICE BUCIO LVN MORPHINE GIVEN AT 2 PER POCKET MAKER.
[2023-04-03] MEDS: MEROPENEM 1 G in IV NORMAL SALINE 100 ML IV SCH ×4 (00:04→23:45)
[2023-04-03] MEDS: CLINDAMYCIN PHOSPHATE IV 900 MG in IV DEXTROSE 5% 100 ML IV SCH ×2 (00:20→09:34)
[2023-04-03 04:42] VITALS: BP 99/58
[2023-04-03 05:53] LABS: HEMATOCRIT 21.6 % (36.7-47.1); MEAN CORPUSCULAR HEMOGLOBIN 27.7 uug (23.8-33.4); MEAN CORPUSCULAR VOLUME 79.6 fL (73.0-96.2); PLATELET COUNT (AUTO) 281 K/uL (152-348)
[2023-04-03] MEDS: BLOOD SUGAR DIAGNOSTIC 1 EACH STRIP VI SCH ×4 (06:10→21:15)
[2023-04-03] MEDS: PANTOPRAZOLE SODIUM 40 MG TABLET.DR PO SCH (06:10)
[2023-04-03] MEDS: MORPHINE SULFATE 2 MG/1 ML DISP.SYRIN IV PRN ×2 (06:30→20:27)
[2023-04-03 07:13] LABS: BILIRUBIN,TOTAL 0.8 mg/dL (0.2-1.0); CREATININE 1.3 mg/dL (0.6-1.3); MAGNESIUM 1.9 mg/dL (1.8-2.4); PHOSPHOROUS 2.7 mg/dL (2.5-4.9); POTASSIUM 4.3 mmol/L (3.5-5.1)
[2023-04-03] MEDS: GLUCERNA SHAKE 237 ML CAN PO SCH ×2 (09:00→17:00)
[2023-04-03] MEDS: PROTEIN SUPPLEMENT (PROSTAT) 30 ML LIQUID PO SCH ×3 (09:00→17:00)
[2023-04-03] MEDS: CARVEDILOL 25 MG TABLET PO SCH ×2 (09:31→18:00)
[2023-04-03] MEDS: APIXABAN 5 MG TABLET PO SCH ×2 (09:34→20:30)
[2023-04-03] MEDS: ASCORBIC ACID 500 MG TABLET PO SCH (09:35)
[2023-04-03] MEDS: AMIODARONE HCL 200 MG TABLET PO SCH (09:35)
[2023-04-03] MEDS: DOCUSATE SODIUM 100 MG CAPSULE PO SCH (09:35)
[2023-04-03] MEDS: POTASSIUM CHLORIDE 20 MEQ TAB.PRT.SR PO SCH (09:35)
[2023-04-03] MEDS: MULTIVIT, IRON, MIN NO. 8, FA TABLET PO SCH (09:35)
[2023-04-03] MEDS: SACUBITRIL/VALSARTAN 24 MG-26 TABLET PO SCH ×2 (09:36→17:00)
[2023-04-03] MEDS: DAPAGLIFLOZIN PROPANEDIOL 5 MG TABLET PO SCH (09:36)
[2023-04-03] MEDS: BUMETANIDE 1 MG TABLET PO SCH (09:37)
[2023-04-03 12:00] VITALS: BP 100/41
[2023-04-03] MEDS: INSULIN REGULAR, HUMAN 300 UNIT/3 ML VIAL SQ PRN ×2 (12:48→21:18)
[2023-04-03 15:40] VITALS: BP 96/53
--- NOTE | 2023-04-03 18:35 | NUR ---
Patient has blood pressure of 88/44 , 85/44 then 91/35 Dr Langston made aware via text with no reply. Endorsed to oncoming shift to continue to monitor and follow up with PCP. Patient in bed alert and verbal in no apparent distress.
[2023-04-03 20:15] VITALS: BP 90/43
[2023-04-03] MEDS: ATORVASTATIN 40 MG TABLET PO SCH (20:31)
[2023-04-03] MEDS: INSULIN GLARGINE,HUM 300 UNITS/3 ML CARTRIDGE SQ SCH (21:14)
[2023-04-04 04:12] VITALS: BP 98/52
[2023-04-04 06:28] LABS: MEAN CORPUSCULAR HEMOGLOBIN 27.2 uug (23.8-33.4)
[2023-04-04 06:30] LABS: HEMATOCRIT 21.7 % (36.7-47.1); MEAN CORPUSCULAR VOLUME 80.5 fL (73.0-96.2); PLATELET COUNT (AUTO) 302 K/uL (152-348)
[2023-04-04 06:42] LABS: CREATININE 1.2 mg/dL (0.6-1.3); MAGNESIUM 1.8 mg/dL (1.8-2.4); PHOSPHOROUS 2.7 mg/dL (2.5-4.9); POTASSIUM 4.3 mmol/L (3.5-5.1)
[2023-04-04] MEDS: PANTOPRAZOLE SODIUM 40 MG TABLET.DR PO SCH (06:56)
[2023-04-04] MEDS: BLOOD SUGAR DIAGNOSTIC 1 EACH STRIP VI SCH ×4 (06:56→21:04)
[2023-04-04] MEDS: CARVEDILOL 25 MG TABLET PO SCH ×2 (08:00→18:00)
[2023-04-04] MEDS: MULTIVIT, IRON, MIN NO. 8, FA TABLET PO SCH (09:04)
[2023-04-04] MEDS: ASCORBIC ACID 500 MG TABLET PO SCH (09:04)
[2023-04-04] MEDS: MEROPENEM 1 G in IV NORMAL SALINE 100 ML IV SCH ×2 (09:04→16:41)
[2023-04-04] MEDS: DOCUSATE SODIUM 100 MG CAPSULE PO SCH (09:04)
[2023-04-04] MEDS: BUMETANIDE 1 MG TABLET PO SCH (09:05)
[2023-04-04] MEDS: PROTEIN SUPPLEMENT (PROSTAT) 30 ML LIQUID PO SCH ×3 (09:05→17:28)
[2023-04-04] MEDS: POTASSIUM CHLORIDE 20 MEQ TAB.PRT.SR PO SCH (09:05)
[2023-04-04] MEDS: GLUCERNA SHAKE 237 ML CAN PO SCH ×2 (09:05→17:28)
[2023-04-04] MEDS: APIXABAN 5 MG TABLET PO SCH ×2 (09:08→21:03)
[2023-04-04] MEDS: AMIODARONE HCL 200 MG TABLET PO SCH (09:10)
[2023-04-04] MEDS: SACUBITRIL/VALSARTAN 24 MG-26 TABLET PO SCH ×2 (09:13→17:29)
[2023-04-04] MEDS: DAPAGLIFLOZIN PROPANEDIOL 5 MG TABLET PO SCH (09:14)
[2023-04-04] MEDS: INSULIN REGULAR, HUMAN 300 UNIT/3 ML VIAL SQ PRN ×2 (11:48→17:33)
[2023-04-04 12:26] VITALS: BP 101/57
--- NOTE | 2023-04-04 14:03 | NUR ---
WOUND CARE PROVIDED TWICE TODAY. PATIENT IS AWAKE AND ALERT. COMFORTABLE CURRENTLY WITH NO S/S OF PAIN. CONSENT SIGNED BY PATIENT. PATIENT HAS AN ORDERED FOR CT ABDOMEN/PELVIS WITH CONTRAST TODAY AT 5PM. CONSENT SIGN BY PATIENT AND EVERYTHING WAS EXPLAINED WITH FULL UNDERSTANDING. PATIENT SPOUSE GISELA IS AWARE AND WILL BE AROUND.
[2023-04-04 16:35] VITALS: BP 103/58
[2023-04-04] MEDS ORDERED: IOHEXOL 300MG/ML 100 ML INFUS..BTL ONE (17:45)
[2023-04-04] MEDS ORDERED: IV NORMAL SALINE 250 ML IV ONE (17:46)
[2023-04-04] MEDS ORDERED: SWABABLE VALVE TRANSFER SET EA MC ONE (17:46)
[2023-04-04] MEDS: ACETAMINOPHEN 325 MG TABLET PO PRN (18:08)
[2023-04-04 20:15] VITALS: BP 92/50
[2023-04-04] MEDS: INSULIN GLARGINE,HUM 300 UNITS/3 ML CARTRIDGE SQ SCH (20:35)
[2023-04-04] MEDS: ATORVASTATIN 40 MG TABLET PO SCH (21:03)
[2023-04-05] MEDS: MEROPENEM 1 G in IV NORMAL SALINE 100 ML IV SCH ×3 (00:05→17:05)
[2023-04-05] MEDS: TRAMADOL HCL 50 MG TABLET PO PRN ×2 (03:47→12:35)
[2023-04-05 04:15] VITALS: BP 98/51
[2023-04-05] MEDS: BLOOD SUGAR DIAGNOSTIC 1 EACH STRIP VI SCH ×4 (05:54→20:52)
[2023-04-05] MEDS: PANTOPRAZOLE SODIUM 40 MG TABLET.DR PO SCH (06:32)
--- NOTE | 2023-04-05 06:50 | NUR ---
The patient had one stool, dressing change completed, tramadol given for pain with good relief noted. BS 61, juice with one pack of sugar given, current recheck on blood sugar 115.
[2023-04-05] MEDS: CARVEDILOL 25 MG TABLET PO SCH ×2 (08:00→17:32)
[2023-04-05] MEDS: APIXABAN 5 MG TABLET PO SCH ×2 (09:34→20:52)
[2023-04-05] MEDS: DOCUSATE SODIUM 100 MG CAPSULE PO SCH (09:34)
[2023-04-05] MEDS: AMIODARONE HCL 200 MG TABLET PO SCH (09:34)
[2023-04-05] MEDS: ASCORBIC ACID 500 MG TABLET PO SCH (09:35)
[2023-04-05] MEDS: POTASSIUM CHLORIDE 20 MEQ TAB.PRT.SR PO SCH (09:35)
[2023-04-05] MEDS: MULTIVIT, IRON, MIN NO. 8, FA TABLET PO SCH (09:35)
[2023-04-05] MEDS: DAPAGLIFLOZIN PROPANEDIOL 5 MG TABLET PO SCH (09:36)
[2023-04-05] MEDS: SACUBITRIL/VALSARTAN 24 MG-26 TABLET PO SCH ×2 (09:36→16:57)
[2023-04-05] MEDS: GLUCERNA SHAKE 237 ML CAN PO SCH ×2 (09:39→16:56)
[2023-04-05] MEDS: PROTEIN SUPPLEMENT (PROSTAT) 30 ML LIQUID PO SCH ×3 (09:40→16:56)
[2023-04-05 11:31] VITALS: BP 99/50
[2023-04-05] MEDS ORDERED: EPOETIN ALFA-EPBX 10,000 UNIT/ML VIAL SQ ONE (12:00)
--- NOTE | 2023-04-05 14:00 | NUR ---
Pt seen by sx team. Awaiting Dr Page's input for possible further debridement of wound.
[2023-04-05 16:00] VITALS: BP 98/52
[2023-04-05] MEDS: INSULIN REGULAR, HUMAN 300 UNIT/3 ML VIAL SQ PRN ×2 (16:58→20:53)
--- NOTE | 2023-04-05 17:00 | NUR ---
Wound Care done as ordered. Noted Beefy red wound with serous drainage noted. Pt tolerated procedure.
[2023-04-05] MEDS: ACETAMINOPHEN 325 MG TABLET PO PRN (17:01)
[2023-04-05 20:00] VITALS: BP 102/57
[2023-04-05] MEDS: ATORVASTATIN 40 MG TABLET PO SCH (20:51)
[2023-04-05] MEDS: INSULIN GLARGINE,HUM 300 UNITS/3 ML CARTRIDGE SQ SCH (20:53)
[2023-04-06] MEDS: MEROPENEM 1 G in IV NORMAL SALINE 100 ML IV SCH ×4 (00:02→23:46)
[2023-04-06 04:00] VITALS: BP 101/58
[2023-04-06] MEDS: PANTOPRAZOLE SODIUM 40 MG TABLET.DR PO SCH (06:13)
[2023-04-06] MEDS: BLOOD SUGAR DIAGNOSTIC 1 EACH STRIP VI SCH ×4 (06:29→20:55)
[2023-04-06 06:36] LABS: HEMATOCRIT 23.8 % (36.7-47.1); MEAN CORPUSCULAR HEMOGLOBIN 26.9 uug (23.8-33.4); MEAN CORPUSCULAR VOLUME 81.3 fL (73.0-96.2); PLATELET COUNT (AUTO) 416 K/uL (152-348)
[2023-04-06 07:28] LABS: BILIRUBIN,TOTAL 0.6 mg/dL (0.2-1.0); CREATININE 1.3 mg/dL (0.6-1.3); MAGNESIUM 1.8 mg/dL (1.8-2.4); POTASSIUM 4.7 mmol/L (3.5-5.1); TOTAL PROTEIN, SERUM 6.6 g/dL (6.4-8.2)
[2023-04-06] MEDS: CARVEDILOL 25 MG TABLET PO SCH ×2 (08:29→17:03)
[2023-04-06] MEDS: MULTIVIT, IRON, MIN NO. 8, FA TABLET PO SCH (08:30)
[2023-04-06] MEDS: APIXABAN 5 MG TABLET PO SCH ×2 (08:30→20:48)
[2023-04-06] MEDS: AMIODARONE HCL 200 MG TABLET PO SCH (08:30)
[2023-04-06] MEDS: ASCORBIC ACID 500 MG TABLET PO SCH (08:30)
[2023-04-06] MEDS: DOCUSATE SODIUM 100 MG CAPSULE PO SCH (08:31)
[2023-04-06] MEDS: POTASSIUM CHLORIDE 20 MEQ TAB.PRT.SR PO SCH (08:31)
[2023-04-06] MEDS: TRAMADOL HCL 50 MG TABLET PO PRN ×2 (08:32→21:23)
[2023-04-06] MEDS: GLUCERNA SHAKE 237 ML CAN PO SCH ×2 (08:33→17:03)
[2023-04-06] MEDS: PROTEIN SUPPLEMENT (PROSTAT) 30 ML LIQUID PO SCH ×3 (08:33→17:03)
[2023-04-06] MEDS: DAPAGLIFLOZIN PROPANEDIOL 5 MG TABLET PO SCH (08:33)
[2023-04-06] MEDS: SACUBITRIL/VALSARTAN 24 MG-26 TABLET PO SCH ×2 (08:33→17:00)
[2023-04-06 11:48] VITALS: BP 95/50
[2023-04-06] MEDS: INSULIN REGULAR, HUMAN 300 UNIT/3 ML VIAL SQ PRN ×3 (12:13→21:01)
[2023-04-06 16:02] VITALS: BP 96/52
[2023-04-06] MEDS: ATORVASTATIN 40 MG TABLET PO SCH (20:45)
[2023-04-06] MEDS: INSULIN GLARGINE,HUM 300 UNITS/3 ML CARTRIDGE SQ SCH (21:01)
--- NOTE | 2023-04-07 02:00 | NUR ---
RECEIVED REPORT FROM RN. PATIENT ASLEEP IN BED. NO RESP. DISTRESS NOTED. BED ALARM ON. CALL LIGHT IN REACH. ALL NEEDS ATTENDED. WILL CONTINUE TO MONITOR AND ASSESS.
--- NOTE | 2023-04-07 02:05 | NUR ---
PATIENT NPO SINCE MIDNIGHT FOR PROCEDURE IN AM.
--- NOTE | 2023-04-07 02:15 | NUR ---
RN NOTE: Pt was alert and oriented at start of Shift. Pt had a BM. Pt dressing changed and packed. PRN given for Pain. All needs attended to. PT on NPO for debridement procedure in AM. Care transfered to CORAL Luna @220 AM
[2023-04-07 04:00] VITALS: BP 111/58
[2023-04-07] MEDS: PANTOPRAZOLE SODIUM 40 MG TABLET.DR PO SCH (06:02)
[2023-04-07] MEDS: BLOOD SUGAR DIAGNOSTIC 1 EACH STRIP VI SCH ×4 (06:19→21:07)
[2023-04-07 07:01] LABS: MEAN CORPUSCULAR VOLUME 81.6 fL (73.0-96.2); PLATELET COUNT (AUTO) 463 K/uL (152-348)
[2023-04-07 07:15] LABS: BILIRUBIN,TOTAL 0.6 mg/dL (0.2-1.0); CREATININE 1.2 mg/dL (0.6-1.3); MAGNESIUM 1.9 mg/dL (1.8-2.4); PHOSPHOROUS 3.1 mg/dL (2.5-4.9); POTASSIUM 4.9 mmol/L (3.5-5.1); TOTAL PROTEIN, SERUM 6.7 g/dL (6.4-8.2)
[2023-04-07] MEDS: CARVEDILOL 25 MG TABLET PO SCH ×3 (08:00→17:41)
[2023-04-07] MEDS: PROTEIN SUPPLEMENT (PROSTAT) 30 ML LIQUID PO SCH ×3 (08:00→17:41)
[2023-04-07] MEDS: GLUCERNA SHAKE 237 ML CAN PO SCH ×2 (08:00→17:40)
[2023-04-07] MEDS: MEROPENEM 1 G in IV NORMAL SALINE 100 ML IV SCH ×2 (08:10→16:13)
[2023-04-07] MEDS: DOCUSATE SODIUM 100 MG CAPSULE PO SCH (08:20)
[2023-04-07] MEDS: AMIODARONE HCL 200 MG TABLET PO SCH (08:20)
[2023-04-07] MEDS: APIXABAN 5 MG TABLET PO SCH (08:20)
[2023-04-07] MEDS: SACUBITRIL/VALSARTAN 24 MG-26 TABLET PO SCH ×2 (08:21→17:40)
[2023-04-07] MEDS: DAPAGLIFLOZIN PROPANEDIOL 5 MG TABLET PO SCH (08:21)
[2023-04-07] MEDS: POTASSIUM CHLORIDE 20 MEQ TAB.PRT.SR PO SCH (08:21)
[2023-04-07] MEDS: MULTIVIT, IRON, MIN NO. 8, FA TABLET PO SCH (08:21)
[2023-04-07] MEDS: ASCORBIC ACID 500 MG TABLET PO SCH (08:21)
[2023-04-07] MEDS ORDERED: MERO1VIA23 IV (11:01)
[2023-04-07] MEDS ORDERED: ERTA1VIA4 IJ (11:02)
[2023-04-07 11:32] VITALS: BP 101/56
[2023-04-07] MEDS ORDERED: VANCOMYCIN 1000 MG VIAL ONE (12:18)
--- NOTE | 2023-04-07 12:30 | NUR ---
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 Consent signed for the procedure. Pre op check list done. Kept pt NPO p midNight. PIcc line on right upper arm intact. Pt's eyeglass taken off and given to patient. Notified CM that wants to talk with CM regarding placement. No sob noted when pt was picked up.
[2023-04-07] MEDS ORDERED: LIDOCAINE-MPF 2% 5 ML VIAL ONE (13:00)
[2023-04-07] MEDS ORDERED: CEFAZOLIN 1 G VIAL ONE (13:00)
[2023-04-07] MEDS ORDERED: ATROPINE SULFATE 1 MG/ML VIAL ONE (13:00)
[2023-04-07] MEDS ORDERED: PROPOFOL 200 MG/20 ML BOTTLE ONE (13:00)
[2023-04-07] MEDS: MORPHINE SULFATE 2 MG/1 ML DISP.SYRIN IV PRN (17:39)
--- NOTE | 2023-04-07 18:37 | NUR ---
Per Dr Ventura NO DC today for patient. Pt had general anesthesia, propofol, LMA for todays procedure. PT 's pain relieved to 2/10 after given morphine. Dressing intact.
[2023-04-07 20:00] VITALS: BP 102/48
[2023-04-07] MEDS: ATORVASTATIN 40 MG TABLET PO SCH (21:05)
[2023-04-07] MEDS: INSULIN GLARGINE,HUM 300 UNITS/3 ML CARTRIDGE SQ SCH (21:10)
[2023-04-07] MEDS: INSULIN REGULAR, HUMAN 300 UNIT/3 ML VIAL SQ PRN (21:12)
[2023-04-08 04:00] VITALS: BP 103/52
[2023-04-08] MEDS: PANTOPRAZOLE SODIUM 40 MG TABLET.DR PO SCH (06:24)
[2023-04-08] MEDS: BLOOD SUGAR DIAGNOSTIC 1 EACH STRIP VI SCH ×4 (06:42→20:09)
--- NOTE | 2023-04-08 07:11 | NUR ---
Slept well throughout the night, no noted acute distress. Needs assessed and attended to.
[2023-04-08] MEDS: DOCUSATE SODIUM 100 MG CAPSULE PO SCH (08:18)
[2023-04-08] MEDS: MULTIVIT, IRON, MIN NO. 8, FA TABLET PO SCH (08:19)
[2023-04-08] MEDS: ASCORBIC ACID 500 MG TABLET PO SCH (08:19)
[2023-04-08] MEDS: AMIODARONE HCL 200 MG TABLET PO SCH (08:19)
[2023-04-08] MEDS: CARVEDILOL 25 MG TABLET PO SCH ×2 (08:20→17:09)
[2023-04-08] MEDS: GLUCERNA SHAKE 237 ML CAN PO SCH ×2 (08:20→16:35)
[2023-04-08] MEDS: PROTEIN SUPPLEMENT (PROSTAT) 30 ML LIQUID PO SCH ×3 (08:21→16:35)
[2023-04-08] MEDS: MEROPENEM 1 G in IV NORMAL SALINE 100 ML IV SCH ×5 (08:24→23:58)
[2023-04-08] MEDS: DAPAGLIFLOZIN PROPANEDIOL 5 MG TABLET PO SCH (08:26)
[2023-04-08] MEDS: SACUBITRIL/VALSARTAN 24 MG-26 TABLET PO SCH ×3 (08:26→16:45)
[2023-04-08] MEDS: INSULIN REGULAR, HUMAN 300 UNIT/3 ML VIAL SQ PRN ×4 (08:28→20:10)
[2023-04-08] MEDS ORDERED: SODIUM HYPOCHLORITE 0.25% (HALF STRENGTH) 480 ML BOTTLE TOP PRN (09:00)
[2023-04-08 11:50] VITALS: BP 115/55
[2023-04-08] MEDS ORDERED: IV NS 1000 ML 1,000 ML IV ONE ×2 (12:15→14:30)
--- NOTE | 2023-04-08 14:26 | NUR ---
Pt. supposed to be discharge today but it is cancelled per Dr. Whitt due to low BP even after administrating 1 L of NS bolus. Dr. Rowan ordered another 1 L bolus of NS. Notified came manager internet retails sales Stephanie about discharge cancellation. Also, Dr. Cazares asked to notify ID and reported to Octavia. Will keep monitoring the patient.
[2023-04-08] MEDS: MORPHINE SULFATE 2 MG/1 ML DISP.SYRIN IV PRN (15:19)
[2023-04-08 15:40] VITALS: BP 89/50
[2023-04-08 20:00] VITALS: BP 87/47
[2023-04-08] MEDS: ATORVASTATIN 40 MG TABLET PO SCH (20:00)
[2023-04-08] MEDS: INSULIN GLARGINE,HUM 300 UNITS/3 ML CARTRIDGE SQ SCH (20:09)
[2023-04-08 22:30] VITALS: BP 87/51
[2023-04-08] MEDS ORDERED: IV NORMAL SALINE 500 ML IV ONE (23:00)
--- NOTE | 2023-04-08 23:30 | NUR ---
ALERT AND ORIENTED X4. BP 87/51. HR 75. O2 SAT AT 96% IN ROOM AIR. NS 500 ML BOLUS GIVEN ORDERED. LACTIC ACID STAT ORDERED AFTER BOLUS WELL. BP RECHECKED 82/43. POSITIONED PT TO [place]. WILL CONTINUE TO MONITOR.
[2023-04-09] VITALS (12 sets, daily range): BP systolic 84–106; BP diastolic 43–70
[2023-04-09] MEDS ORDERED: IV LACTATED RINGERS SOLUTION 1,000 ML BAG IV ONE (00:30)
--- NOTE | 2023-04-09 01:30 | NUR ---
PT ALERT, NO CHANGE OF LOC. 1L OF LR BOLUS GIVEN ORDERED. BP 93/52. LR AT 75 CC HR STARTED, ORDERED CXR, BMP AND CBC IN THE MORNING RECEIVED. BP RECHECKED, 100/55. WILL CONTINUE TO MONITOR.
[2023-04-09] MEDS ORDERED: IV LACTATED RINGERS SOLUTION 1,000 ML IV PRN (02:15)
[2023-04-09] MEDS: PANTOPRAZOLE SODIUM 40 MG TABLET.DR PO SCH (06:15)
[2023-04-09] MEDS: BLOOD SUGAR DIAGNOSTIC 1 EACH STRIP VI SCH ×4 (06:32→21:15)
[2023-04-09 06:47] LABS: HEMATOCRIT 21.7 % (36.7-47.1); MEAN CORPUSCULAR HEMOGLOBIN 26.5 uug (23.8-33.4); MEAN CORPUSCULAR VOLUME 82.5 fL (73.0-96.2); PLATELET COUNT (AUTO) 447 K/uL (152-348)
--- NOTE | 2023-04-09 07:15 | NUR ---
CRITICAL VALUE HGB 7.0. REPORTED TO MAEVE BUTTER WRAPPER. RECEIVED ORDER FOR 1 UNIT OF PRBC. ENDORSED TO INCOMING NURSE.
[2023-04-09 07:28] LABS: BILIRUBIN,TOTAL 0.5 mg/dL (0.2-1.0); CREATININE 1.1 mg/dL (0.6-1.3); MAGNESIUM 1.7 mg/dL (1.8-2.4); PHOSPHOROUS 2.5 mg/dL (2.5-4.9); POTASSIUM 4.2 mmol/L (3.5-5.1); TOTAL PROTEIN, SERUM 6.1 g/dL (6.4-8.2)
[2023-04-09] MEDS ORDERED: BUMETANIDE 1 MG/4 ML VIAL IV ONE (07:45)
--- NOTE | 2023-04-09 07:48 | NUR ---
pt will be transfer to telemetry. SBP 85-90 baseline for pt per insurance collector.
[2023-04-09] MEDS: MEROPENEM 1 G in IV NORMAL SALINE 100 ML IV SCH ×3 (08:15→23:54)
[2023-04-09] MEDS: GLUCERNA SHAKE 237 ML CAN PO SCH ×2 (08:16→16:40)
[2023-04-09] MEDS: DOCUSATE SODIUM 100 MG CAPSULE PO SCH (08:16)
[2023-04-09] MEDS: APIXABAN 5 MG TABLET PO SCH ×2 (08:16→21:00)
[2023-04-09] MEDS: PROTEIN SUPPLEMENT (PROSTAT) 30 ML LIQUID PO SCH ×3 (08:16→16:40)
[2023-04-09] MEDS: AMIODARONE HCL 200 MG TABLET PO SCH (08:24)
[2023-04-09] MEDS: DAPAGLIFLOZIN PROPANEDIOL 5 MG TABLET PO SCH (08:26)
[2023-04-09] MEDS: INSULIN REGULAR, HUMAN 300 UNIT/3 ML VIAL SQ PRN ×2 (08:27→12:34)
--- NOTE | 2023-04-09 09:00 | NUR ---
saul Hammond and may continue will per dr. horvath
--- NOTE | 2023-04-09 09:35 | NUR ---
blood transfusion consent signed by the pt.
[2023-04-09] MEDS ORDERED: MAGNESIUM OXIDE 400 MG TABLET PO ONE (10:00)
[2023-04-09] MEDS: MULTIVIT, IRON, MIN NO. 8, FA TABLET PO SCH (10:06)
[2023-04-09] MEDS: ASCORBIC ACID 500 MG TABLET PO SCH (10:07)
--- NOTE | 2023-04-09 11:44 | NUR ---
pre transfusion v/s taken. pt afebrile. blood transfusion started.will cont to monitor. Addendum: 04/09/23 at 1230 by MARI WALTER RN no blood transfusion reaction noted.
--- NOTE | 2023-04-09 14:27 | NUR ---
pt tolerated blood transfusion well. no adverse reaction noted. vitals wnl.
[2023-04-09] MEDS: BUMETANIDE 1 MG/4 ML VIAL IV ONE ×2 (15:45→18:49)
--- NOTE | 2023-04-09 18:52 | NUR ---
pt doing well. denies any pain or shortness of breath. hold off post transfusion 2nd dose of bumex per dr. horvath. will reassess pt will.
[2023-04-09] MEDS: ONDANSETRON 4 MG/2 ML VIAL IV PRN (20:48)
[2023-04-09] MEDS: ATORVASTATIN 40 MG TABLET PO SCH (20:58)
[2023-04-09] MEDS: INSULIN GLARGINE,HUM 300 UNITS/3 ML CARTRIDGE SQ SCH (21:24)
[2023-04-10] VITALS: BP 92/49
[2023-04-10 04:00] VITALS: BP 99/54
[2023-04-10] MEDS: MORPHINE SULFATE 2 MG/1 ML DISP.SYRIN IV PRN (06:17)
[2023-04-10] MEDS: PANTOPRAZOLE SODIUM 40 MG TABLET.DR PO SCH (06:17)
[2023-04-10] MEDS: BLOOD SUGAR DIAGNOSTIC 1 EACH STRIP VI SCH ×5 (06:20→20:39)
[2023-04-10 06:50] LABS: HEMATOCRIT 23.6 % (36.7-47.1); MEAN CORPUSCULAR HEMOGLOBIN 26.9 uug (23.8-33.4); MEAN CORPUSCULAR VOLUME 81.6 fL (73.0-96.2); PLATELET COUNT (AUTO) 461 K/uL (152-348)
[2023-04-10 06:54] LABS: CREATININE 1.2 mg/dL (0.6-1.3); MAGNESIUM 1.7 mg/dL (1.8-2.4); PHOSPHOROUS 2.6 mg/dL (2.5-4.9); POTASSIUM 4.1 mmol/L (3.5-5.1)
[2023-04-10 07:30] VITALS: BP 104/78
--- NOTE | 2023-04-10 07:30 | NUR ---
report given to jacquelin ramirez
[2023-04-10] MEDS: MAGNESIUM SULFATE/D5W 100 ML IV SCH ×2 (07:45→08:39)
[2023-04-10] MEDS: GLUCERNA SHAKE 237 ML CAN PO SCH ×2 (08:12→17:15)
[2023-04-10] MEDS: PROTEIN SUPPLEMENT (PROSTAT) 30 ML LIQUID PO SCH ×3 (08:13→17:15)
[2023-04-10] MEDS: MEROPENEM 1 G in IV NORMAL SALINE 100 ML IV SCH ×2 (08:17→16:16)
[2023-04-10] MEDS: INSULIN REGULAR, HUMAN 300 UNIT/3 ML VIAL SQ PRN ×5 (08:27→20:40)
[2023-04-10] MEDS: MULTIVIT, IRON, MIN NO. 8, FA TABLET PO SCH (08:39)
[2023-04-10] MEDS: APIXABAN 5 MG TABLET PO SCH ×2 (08:40→20:38)
[2023-04-10] MEDS: ASCORBIC ACID 500 MG TABLET PO SCH (08:41)
[2023-04-10] MEDS: AMIODARONE HCL 200 MG TABLET PO SCH (08:41)
[2023-04-10] MEDS: DOCUSATE SODIUM 100 MG CAPSULE PO SCH (08:41)
[2023-04-10] MEDS: TRAMADOL HCL 50 MG TABLET PO PRN (08:42)
[2023-04-10] MEDS: DAPAGLIFLOZIN PROPANEDIOL 5 MG TABLET PO SCH (08:49)
[2023-04-10] MEDS ORDERED: BUMETANIDE 1 MG/4 ML VIAL IV SCH (09:00)
[2023-04-10 11:55] VITALS: BP 108/60
--- NOTE | 2023-04-10 15:36 | NUR ---
0730-UPON SHIFT EXCHANGE ROUNDS, REC'D PATIENT IN BED, AWAKE, A/OX3-4, NOTED PATIENT WITH INTERMITTENT FORGETFULNESS. PATIENT DENIES ANY PAIN/DISCOMFORT, NO FACIAL GRIMACES OR MOANING NOTED. ORAL FLUIDS OFFERED AND TAKEN WELL. DIAZ CATHETER IN PLACE, DRAINING TO YELLOW URINE/GRAVITY. SAFETY MEASURES IN PLACE AND CALL LIGHT AT REACH, ENCOURAGED TO USE IT FOR HELP EVERY TIME NEEDED. 0900-SCHEDULED MEDICATIONS ADMINISTERED WITH NO ASE NOTED; IV Mg RUNNING ORDERED. AAMIR P/L INFUSING WELL WITH SITE INTACT. WILL CONT. TO MONITOR. 1100-LEFT BUTTOCKS ABSCESS WOUND DRESSING CHANGED, NO DRAINAGE, BLEEDING OR FOUL ODOR NOTED. PATIENT TOLERATED WELL TREATMENT & WAS MEDICATED PRIOR WOUND CARE WITH TRAMADOL ORDERED BY MD WITH HELP.
[2023-04-10 16:26] VITALS: BP 98/57
[2023-04-10 18:20] LABS: HEMATOCRIT 25.3 % (36.7-47.1); MEAN CORPUSCULAR HEMOGLOBIN 26.6 uug (23.8-33.4); MEAN CORPUSCULAR VOLUME 81.6 fL (73.0-96.2); PLATELET COUNT (AUTO) 499 K/uL (152-348)
--- NOTE | 2023-04-10 18:52 | NUR ---
1800-Patient in bed, resting comfortably. Visitor/ at bedside. Patient in no resp. distress, denies pain. Lola. meals & fluids well during shift. VSS, extensive assist provided with ADLs/as needed. Care provided at routine intervals and PRN. Routine rounds and frequent visual checks done. All needs attended well and met. CBC lab done at this time. PL AAMIR flushing/infusing well, site intact. Endorsed to incoming relieving NOC RN.
--- NOTE | 2023-04-10 20:00 | NUR ---
Received patient laying in bed. In no apparent distress. AAOx4 Conley catheter patent and draining well. Call button within reach. Will continue plan of care.
[2023-04-10 20:32] VITALS: BP 95/60
[2023-04-10] MEDS: ATORVASTATIN 40 MG TABLET PO SCH (20:36)
[2023-04-10] MEDS: INSULIN GLARGINE,HUM 300 UNITS/3 ML CARTRIDGE SQ SCH (20:46)
[2023-04-11] MEDS: MEROPENEM 1 G in IV NORMAL SALINE 100 ML IV SCH ×2 (00:10→08:52)
[2023-04-11] MEDS: ONDANSETRON 4 MG/2 ML VIAL IV PRN (03:24)
[2023-04-11] MEDS: MORPHINE SULFATE 2 MG/1 ML DISP.SYRIN IV PRN (03:46)
[2023-04-11 04:33] VITALS: BP 117/69
[2023-04-11] MEDS: PANTOPRAZOLE SODIUM 40 MG TABLET.DR PO SCH (06:05)
[2023-04-11] MEDS: BLOOD SUGAR DIAGNOSTIC 1 EACH STRIP VI SCH ×2 (06:12→11:39)
[2023-04-11 06:25] LABS: HEMATOCRIT 25.3 % (36.7-47.1); MEAN CORPUSCULAR HEMOGLOBIN 26.7 uug (23.8-33.4); MEAN CORPUSCULAR VOLUME 81.7 fL (73.0-96.2); PLATELET COUNT (AUTO) 491 K/uL (152-348)
[2023-04-11] MEDS: MULTIVIT, IRON, MIN NO. 8, FA TABLET PO SCH (08:21)
[2023-04-11] MEDS: ASCORBIC ACID 500 MG TABLET PO SCH (08:21)
[2023-04-11] MEDS: DOCUSATE SODIUM 100 MG CAPSULE PO SCH (08:21)
[2023-04-11] MEDS: AMIODARONE HCL 200 MG TABLET PO SCH (08:22)
[2023-04-11] MEDS: APIXABAN 5 MG TABLET PO SCH (08:23)
[2023-04-11] MEDS: DAPAGLIFLOZIN PROPANEDIOL 5 MG TABLET PO SCH (08:24)
[2023-04-11] MEDS: GLUCERNA SHAKE 237 ML CAN PO SCH (08:28)
[2023-04-11] MEDS: PROTEIN SUPPLEMENT (PROSTAT) 30 ML LIQUID PO SCH ×2 (08:28→11:44)
[2023-04-11 11:40] VITALS: BP 102/50
[2023-04-11] MEDS: INSULIN REGULAR, HUMAN 300 UNIT/3 ML VIAL SQ PRN (11:40)
--- NOTE | 2023-04-11 13:53 | NUR ---
Pt. discharged to [facility]. Noted to be stable upon the discharge. All personal belonging returned to the patient. All necessary document signed and one copy given to the pt. Called the SNF and gave report to Eunice. Pt. was sent to SNF via ambulance.
== END 2023-04-11 13:45 | DRG 853 ==
LOC: ER 16:41 → TRANSITION 03-24 09:44 → TELE3 03-24 22:30 → CCU 03-28 18:48 → TELE3 03-31 18:36 → MEDSURG3 04-02 08:25 → TELE3 04-09 10:13
PROVIDERS: ADMIT Student in an Organized Health Care Education/Training Program; ATTEND Internal Medicine
PROC: 0JB90ZZ Excision of Buttock Subcutaneous Tissue and Fascia, Open Approach (ICD-10-PCS; 2023-03-24)
PROC: 0KBP0ZZ Excision of Left Hip Muscle, Open Approach (ICD-10-PCS; 2023-03-28)
PROC: 02HV33Z Insertion of Infusion Device into Superior Vena Cava, Percutaneous Approach (ICD-10-PCS; 2023-03-31)
PROC: B548ZZA Ultrasonography of Superior Vena Cava, Guidance (ICD-10-PCS; 2023-03-31)
PROC: 0KBP0ZZ Excision of Left Hip Muscle, Open Approach (ICD-10-PCS; principal; 2023-04-07)
PROC: 0KBN0ZZ Excision of Right Hip Muscle, Open Approach (ICD-10-PCS; 2023-04-07)
PROC: 30233N1 Transfusion of Nonautologous Red Blood Cells into Peripheral Vein, Percutaneous Approach (ICD-10-PCS; 2023-04-09)
DX: A41.9 Sepsis, unspecified organism (principal); E43 Unspecified severe protein-calorie malnutrition; N17.0 Acute kidney failure with tubular necrosis; I21.A1 Myocardial infarction type 2; G92.8 Other toxic encephalopathy; R65.21 Severe sepsis with septic shock; I50.23 Acute on chronic systolic (congestive) heart failure; I13.0 Hypertensive heart and chronic kidney disease with heart failure and stage 1 through stage 4 chronic kidney disease, or unspecified chronic kidney disease; L02.31 Cutaneous abscess of buttock; I42.0 Dilated cardiomyopathy; D68.69 Other thrombophilia; K61.1 Rectal abscess; M46.28 Osteomyelitis of vertebra, sacral and sacrococcygeal region; L02.215 Cutaneous abscess of perineum; N13.30 Unspecified hydronephrosis; D64.9 Anemia, unspecified; E11.65 Type 2 diabetes mellitus with hyperglycemia; E66.01 Morbid (severe) obesity due to excess calories; E78.5 Hyperlipidemia, unspecified; E88.09 Other disorders of plasma-protein metabolism, not elsewhere classified; I48.0 Paroxysmal atrial fibrillation; I70.0 Atherosclerosis of aorta; K21.9 Gastro-esophageal reflux disease without esophagitis; K44.9 Diaphragmatic hernia without obstruction or gangrene; N49.3 Fournier gangrene; Z79.4 Long term (current) use of insulin; Z95.810 Presence of automatic (implantable) cardiac defibrillator; Z88.0 Allergy status to penicillin; Z86.73 Personal history of transient ischemic attack (TIA), and cerebral infarction without residual deficits; Z93.3 Colostomy status; I25.10 Atherosclerotic heart disease of native coronary artery without angina pectoris; Z79.01 Long term (current) use of anticoagulants; Z79.84 Long term (current) use of oral hypoglycemic drugs; K57.90 Diverticulosis of intestine, part unspecified, without perforation or abscess without bleeding; Z68.21 Body mass index [BMI] 21.0-21.9, adult; Z74.09 Other reduced mobility; I95.9 Hypotension, unspecified; G93.89 Other specified disorders of brain; E83.42 Hypomagnesemia; N18.9 Chronic kidney disease, unspecified; E11.22 Type 2 diabetes mellitus with diabetic chronic kidney disease
CPT/HCPCS: 36415; 36569; 70450; 71045; 83605; 83735; 84100; 84443; 84484; 84550; 85025; 85730; 86850; 86900; 86901; 86920; 87040; 88312-TC; 93005; 93307; 93880; 97535-GO-CO; A4649; A4663; A6209; A6213; G0378; J0461; J0690; J0692; J0885; J1815; J2060; J2185; J2270; J2370; J2405; J2765; J3010; J3370; J3475; J3490; J7040; J7050; J7120; J7512; P9016; P9045; Q9967